=== PATIENT | female | born 1990 | race Caucasian/White ===

== ENCOUNTER 2017-09-06 05:18 | Inpatient (IN) ==
[2017-09-06] MEDS ORDERED: ONDANSETRON 4 MG/2 ML VIAL IV PRN (05:44)
[2017-09-06] MEDS ORDERED: BUTORPHANOL 2 MG/ML VIAL IV PRN (05:44)
[2017-09-06] MEDS ORDERED: ACETAMINOPHEN 325 MG TABLET PO PRN (05:44)
[2017-09-06] MEDS ORDERED: AMPICILLIN INJ 2,000 MG in SODIUM CHLORIDE 0.9% 100 ML IV ONE (05:45)
[2017-09-06] MEDS: LACTATED RINGERS 1,000 ML IV SCH ×4 (06:00→18:04)
[2017-09-06] MEDS ORDERED: OXYTOCIN/LR 20 UNIT/1,000 ML BAG IV SCH (06:00)
[2017-09-06 06:29] LABS: Basophils # 0.1 10*3/uL (0.0-0.2); Basophils % 0.4 % (0.0-0.8); Eosinophils # 0.1 10*3/uL (0.0-0.87); Eosinophils % 0.8 % (0.00-10.9); Hematocrit 31.7 VOL% (35.7-47.0); Hemoglobin 10.5 GM/DL (12.0-16.0); Immature Granulocytes % 0.6 %; Immature Granulocytes Absolute 0.09 #; Lymphocytes # 2.2 10*3/uL (1.4-4.0); Mean Corpuscular HGB Conc 33.1 GM/DL (32-36); Mean Corpuscular Hemoglobin 28 PG (27-34); Mean Corpuscular Volume 83.4 FL (87-102); Mean Platelet Volume 13.3 FL (9.6-12.0); Monocytes # 1.1 10*3/uL (0.11-0.8); Monocytes % 6.9 % (1.7-12.7); Neutrophils # 11.9 10*3/uL (1.4-7.4); Neutrophils % 77.3 % (38.7-73.9); Platelet Count 158 T/CUMM (130-400); Red Cell Distribution Width 13.2 % (9.3-17.3); White Blood Count 15.4 T/CUMM (4-12)
[2017-09-06 06:59] LABS: Albumin 2.8 G/DL (3.4-5.0); Bilirubin,Total 0.4 MG/DL (0.2-1.0); Calcium 8.8 MG/DL (8.5-10.1); Osmolality,Calculated 270.8 MOS/KG (273-304); Potassium 3.8 MMOL/L (3.5-5.1); Total Protein 6.3 G/DL (6.4-8.3)
[2017-09-06] MEDS ORDERED: ePHEDrine 50 MG/ML AMP IV PRN (09:30)
[2017-09-06] MEDS ORDERED: fentaNYL 2 MCG/ROPIV 0.2% EPID 150 ML EPIDURAL SCH (09:30)
[2017-09-06] MEDS ORDERED: diphenhydrAMINE 50 MG/1 ML VIAL IV PRN (09:30)
[2017-09-06] MEDS ORDERED: CITRIC ACID/SODIUM CITRATE 30 ML UDCUP PO ONE (09:31)
[2017-09-06] MEDS ORDERED: FAMOTIDINE 20 MG/2 ML VIAL IV ONE (09:31)
[2017-09-06] MEDS: AMPICILLIN INJ 1,000 MG in SODIUM CHLORIDE 0.9% 100 ML IV SCH ×2 (10:33→14:06)
[2017-09-06] MEDS ORDERED: METHYLERGONOVINE 0.2 MG/1 ML AMP ONE (14:00)
[2017-09-06] MEDS ORDERED: miSOPROStol 200 MCG TABLET ONE (14:00)
[2017-09-06] MEDS ORDERED: oxyCODONE/ACETAMINOPHEN 5-325 MG TABLET PO PRN (20:28)
[2017-09-06] MEDS ORDERED: BENZOCAINE 20%/MENTHOL 0.5% SPRAY 56 GM CAN TOP PRN (20:28)
[2017-09-06] MEDS: DOCUSATE SODIUM 100 MG CAPSULE PO SCH (20:39)
[2017-09-06] MEDS: oxyCODONE/ACETAMINOPHEN 5-325 MG TABLET PO PRN (20:40)
[2017-09-06] MEDS: IBUPROFEN 800 MG TABLET PO PRN (23:28)
[2017-09-07] MEDS: oxyCODONE/ACETAMINOPHEN 5-325 MG TABLET PO PRN ×3 (04:12→20:46)
[2017-09-07 07:05] LABS: Basophils # 0.1 10*3/uL (0.0-0.2); Basophils % 0.3 % (0.0-0.8); Eosinophils # 0.1 10*3/uL (0.0-0.87); Hematocrit 28.1 VOL% (35.7-47.0); Immature Granulocytes % 0.6 %; Immature Granulocytes Absolute 0.09 #; Lymphocytes % 13.7 % (21.3-54.2); Mean Corpuscular Hemoglobin 27 PG (27-34); Mean Corpuscular Volume 85.2 FL (87-102); Mean Platelet Volume 13.7 FL (9.6-12.0); Monocytes # 1.4 10*3/uL (0.11-0.8); Monocytes % 9.7 % (1.7-12.7); Neutrophils # 10.8 10*3/uL (1.4-7.4); Neutrophils % 74.7 % (38.7-73.9); Platelet Count 116 T/CUMM (130-400); Red Cell Distribution Width 13.4 % (9.3-17.3); White Blood Count 14.5 T/CUMM (4-12)
[2017-09-07] MEDS ORDERED: WITCH HAZEL PADS 100/JAR TOP PRN (07:55)
[2017-09-07] MEDS: IBUPROFEN 800 MG TABLET PO PRN (08:03)
[2017-09-07] MEDS: DOCUSATE SODIUM 100 MG CAPSULE PO SCH ×2 (09:09→20:07)
[2017-09-08] MEDS: oxyCODONE/ACETAMINOPHEN 5-325 MG TABLET PO PRN ×2 (02:52→08:43)
[2017-09-08] MEDS: DOCUSATE SODIUM 100 MG CAPSULE PO SCH (08:43)
[2017-09-08 09:52] VITALS: BP 121/79
[2017-09-08] MEDS: DIPH/TET/ACEL PERT BOOSTER VACCINE 0.5 ML VIAL IM ONE ×2 (11:25→12:31)
== END 2017-09-08 13:40 | disposition home or self-care (01) | DRG 775 ==
LOC: N.LDOUT 05:18 → N.LD 05:33 → N.OB 18:23
PROVIDERS: ADMIT Obstetrics & Gynecology; ATTEND Obstetrics & Gynecology